=== PATIENT | male | born 1995 | race Caucasian/White ===

== ENCOUNTER 2017-09-25 09:46 | Emergency (ER) | payer BC ==
[2017-09-25 11:22] VITALS: BP 126/83
[2017-09-25] MEDS ORDERED: Acetaminophen TAB* 325 MG PO ONE (12:15)
--- NOTE | 2017-09-25 12:19 | UC ---
Ear Complaint HPI - HPI Summary HPI Summary: OVER A WEEK OF COUGH, CONGESTION, FATIGUE. PAST FEW DAYS DEVELOPED FEVER, MYALGIAS AND LEFT EAR PAIN. HEARING IS MUTED. HAS NOT TAKEN ANYTHING FOR FEVER TODAY. - History of Current Complaint Chief Complaint: UCRespiratory Stated Complaint: COUGH FEVER Time Seen by Provider: 09/25/17 12:05 Hx Obtained From: Patient, Family/Transportation Manager - GIRLFRIEND Onset/Duration: Gradual Onset, Lasting Days, Still Present Severity Initially: Moderate Severity Currently: Moderate Pain Intensity: 7 Pain Scale Used: 0-10 Numeric Aggravating Factors: Nothing Alleviating Factors: Nothing Associated Signs/Symptoms: Positive: Hearing Loss, URI Symptoms - Allergies/Home Medications Allergies/Adverse Reactions: Allergies Allergy/AdvReac Type Severity Reaction Status Date / Time No Known Allergies Allergy Verified 09/25/17 11:22 PMH/Surg Hx/FS Hx/Imm Hx Previously Healthy: Yes Other History Of: Negative For: Anticoagulant Therapy - Surgical History Surgical History: None - Family History Known Family History: Negative: Hypertension - Social History Alcohol Use: Rare Substance Use Type: None Smoking Status (MU): Light Every Day Tobacco Smoker Household Exposure Type: Cigarettes Review of Systems Constitutional: Fever, Chills, Fatigue ENT: Sore Throat, Ear Ache, Nasal Discharge Respiratory: Cough Cardiovascular: Negative Gastrointestinal: Negative Musculoskeletal: Myalgia Neurological: Headache All Other Systems Reviewed And Are Negative: Yes Physical Exam Triage Information Reviewed: Yes Appearance: No Pain Distress, Well-Nourished, Ill-Appearing - MOD Vital Signs: Initial Vital Signs Temp 100.5 F 09/25/17 11:17 Pulse 105 09/25/17 11:17 Resp 16 09/25/17 11:17 BP 126/83 09/25/17 11:17 Pulse Ox 99 09/25/17 11:17 Eyes: Positive: Conjunctiva Clear ENT: Positive: Hearing grossly normal, Pharynx normal, Other - RIGHT TM NORMAL. LEFT TM DULL, ERYTHEMATOUS Neck: Positive: Supple, Nontender, No Lymphadenopathy Respiratory Exam: Normal Cardiovascular Exam: Normal Abdomen Description: Positive: Soft Musculoskeletal: Positive: No Edema Neurological: Positive: Alert Psychological: Positive: Age Appropriate Behavior Skin: Negative: rashes Diagnostics - Laboratory Diagnostic Studies Completed/Ordered: FLU SWAB NEGATIVE Ear Complaint Course/Dx - Differential Dx/Diagnosis Provider Diagnoses: 1. LEFT AOM. 2. ACUTE VIRAL SYNDROME Discharge - Discharge Plan Condition: Stable Disposition: HOME Prescriptions: Amoxicillin PO (*) [Amoxicillin 500 MG CAP*] 1,000 mg PO Q12H #28 cap Patient Education Materials: Otitis Media (ED), Viral Syndrome (ED) Forms: *Work Release Referrals: No Primary Care Phys,NOPCP [Primary Care Provider] - Additional Instructions: FLU SWAB NEGATIVE. TAKE ANTIBIOTICS FOR FULL COURSE TO TREAT LEFT EAR INFECTION. VIRAL SYNDROME: The physician has diagnosed a viral infection. Viruses not only cause "colds," but can cause many different symptoms including generalized aching, fever, headache, cough, diarrhea, nausea, vomiting, and fatigue. The treatment, for the most part, is simply relief of symptoms. This means that antibiotics are usually not given. Rest, fluids, pain medications and, occasionally, medication for the specific symptoms that are most bothersome will be prescribed. Contact the physician if you develop any new or unusual symptoms such as severe headache, stiff neck, high fever, chest pain, productive cough, or shortness of breath. You should be rechecked if you don't see marked improvement within seven to 10 days. CALL THE NUMBER BELOW FOR ASSISTANCE IN ESTABLISHING WITH A PCP An additional resource available to assist in finding the appropriate physician for your health care needs is the [facility] ([facility]). You may contact them by calling [phone].
== END 2017-09-25 12:54 | disposition home or self-care (01) ==
LOC: UCEAST 09:46
DX: H66.92 Otitis media, unspecified, left ear (principal); B34.9 Viral infection, unspecified; H91.90 Unspecified hearing loss, unspecified ear; Z72.0 Tobacco use
CPT/HCPCS: 87502; 99202; A9270-GY; G0463

== ENCOUNTER 2018-04-26 15:03 | Emergency (ER) | payer BC ==
[2018-04-26] MEDS ORDERED: Ondansetron INJ* 2 MG/ML VIAL IV ONE (16:35)
[2018-04-26] MEDS ORDERED: NS 0.9% 1000 ML* 1,000 ML IV ONE (16:35)
[2018-04-26] MEDS ORDERED: HYDROmorphone INJ* 2 MG/ML CARPUJECT SYRINGE IV SLOW PU ONE (16:35)
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
[2018-04-26] MEDS ORDERED: Iodixanol* (CONTRAST) 320 MG/ML 100 ML SDV IV ONE (16:47)
[2018-04-26 17:00] LABS: ABS Basophils 0 10^3/ul (0-0.2); ABS Eosinophils 0 10^3/ul (0-0.6); ABS Lymphocytes 1.7 10^3/ul (1.0-4.8); ABS Monocytes 0.8 10^3/ul (0-0.8); ABS Neutrophils 8.3 10^3/ul (1.5-7.7); ABS Nucleated RBC 0 10^3/ul; Eosinophil % 0.4 % (0-6); Hematocrit 44 % (42-52); Hemoglobin 15.3 g/dl (14.0-18.0); Lymphocyte % 15.2 % (25-47); Mean Corpuscular HGB Conc 35 g/dl (31-36); Mean Corpuscular Hemoglobin 32 pg (27-31); Mean Corpuscular Volume 91 fL (80-94); Mean Platelet Volume 8.1 um3 (7.4-10.4); Nucleated Red Blood Cells % 0; Platelet Count 231 10^3/ul (150-450); Red Blood Count 4.76 10^6/ul (4.00-5.40); Red Cell Distribution Width 14 % (10.5-15); White Blood Count 10.9 10^3/ul (3.5-10.8)
[2018-04-26 17:05] LABS: INR 0.93 (0.77-1.02)
[2018-04-26 17:10] LABS: EGFR Non-African American 103.2 (>60)
[2018-04-26 17:32] VITALS: BP 138/80
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
--- NOTE | 2018-04-26 18:28 | RAD ---
Indication: Left Shoulder injury. 4 views of left shoulder demonstrates no fracture or dislocation. No other bone or joint abnormality is noted. IMPRESSION: No fracture of the left shoulder is noted.
== END 2018-04-26 18:42 | disposition home or self-care (01) ==
LOC: ED 15:03
DX: S06.0X1A Concussion with loss of consciousness of 30 minutes or less, initial encounter (principal); S39.012A Strain of muscle, fascia and tendon of lower back, initial encounter; S27.329A Contusion of lung, unspecified, initial encounter; V86.56XA Driver of dirt bike or motor/cross bike injured in nontraffic accident, initial encounter; Y93.89 Activity, other specified; Y92.096 Garden or yard of other non-institutional residence as the place of occurrence of the external cause; F17.200 Nicotine dependence, unspecified, uncomplicated
CPT/HCPCS: 36415; 70450; 71260; 72125; 72131; 74177; 80053; 80320; 83605; 83690; 85025; 85610; 86850; 86900; 86901; 96374; 96375; 99283; G0480; J1170; J2405; Q9967